=== PATIENT | female | born 1985 | race Caucasian/White ===

== ENCOUNTER 2018-04-26 17:44 | Outpatient (CLI) | payer MEDICAID ==
[2018-04-26 18:45] LABS: ADD UMIC YES; UR ASCORBIC ACID NEGATIVE (NEGATIVE); UR BACTERIA FEW /HPF (NONE SEEN); UR BILIRUBIN (Dip) NEGATIVE (NEGATIVE); UR BLOOD (Dip) NEGATIVE (NEGATIVE); UR CLARITY CLOUDY (CLEAR); UR COLOR YELLOW (YELLOW); UR GLUCOSE (Dip) NEGATIVE (NEGATIVE); UR KETONES (Dip) 2+ mg/dL (NEGATIVE); UR LEUKOCYTE ESTERASE (Dip) 1+ Leu/ul (NEGATIVE); UR MUCUS FEW /HPF (NONE SEEN); UR NITRITE (Dip) NEGATIVE (NEGATIVE); UR RBC 1 /HPF (0-5); UR SPECIFIC GRAVITY (Dip) 1.021 (1.003-1.030); UR SQUAMOUS EPITHELIAL CELL MANY /HPF (FEW); UR TOTAL PROTEIN (Dip) NEGATIVE (NEGATIVE); UR UROBILINOGEN (Dip) NEGATIVE (NEGATIVE); UR WBC 10 /HPF (0-5)
[2018-04-26] MEDS: DEXTROSE 5%-LR 1,000 ML IV (18:50)
[2018-04-26] MEDS: LACTATED RINGER'S 1,000 ML IV (20:50)
== END 2018-04-27 00:46 | disposition home or self-care (01) ==
LOC: OBT 04-27 00:46 → L-D 17:44
DX: O36.8130 Decreased fetal movements, third trimester, not applicable or unspecified (principal); O24.419 Gestational diabetes mellitus in pregnancy, unspecified control; Z3A.38 38 weeks gestation of pregnancy
CPT/HCPCS: 36415; 81001; 82962; 96360; 96361